=== PATIENT | male | born 1955 | race Caucasian/White ===

== ENCOUNTER 2016-10-22 15:01 | Emergency (ER) | payer SELFPAY ==
[2016-10-22 15:37] VITALS: BP 125/78; PULSE 64; RESP 16; TEMP 98.4; O2SAT 95
--- NOTE | 2016-10-22 16:14 | UCPHY ---
H & P Time Seen by Provider: 10/22/16 16:01 Patient Type: New HPI/ROS: This patient presents with a chief complaint of foreign body to his left eye which began several hours ago. He was looking up well working and something fell into his eye. He does not were contacts. He has irrigated the eye but without benefit. Smoking Status: Never smoked Physical Exam: This is a well-developed well-nourished male appears to be in significant discomfort from his foreign body. Examination of the eye reveals equal pupils which are round reactive. Conjunctiva are slightly injected. No obvious foreign body is noted. The left eye was examined with a slit lamp the cornea is clear without abrasion or foreign body. The upper lid was everted and examined with a slit lamp and no foreign body was seen. The eye was then irrigated with a L of normal saline using a [employer] eye cpo. Constitutional: Initial Vital Signs Temperature (C) 36.9 C 10/22/16 15:35 Heart Rate 64 10/22/16 15:35 Respiratory Rate 16 10/22/16 15:35 Blood Pressure 125/78 H 10/22/16 15:35 O2 Sat (%) 95 10/22/16 15:35 O2 Delivery Mode Room Air Allergies/Adverse Reactions: No Known Allergies Allergy (Unverified 10/22/16 15:34) Home Medications: Medication Instructions Recorded Clonazepam 10/22/16 Clonidine 10/22/16 Lisinopril 10/22/16 Simvastatin 10/22/16 Medical Decision Making ED Course/Re-evaluation: The patient's left eye was irrigated with 500 mL of normal saline using an eye cpo. After this procedure and after the local anesthetic had worn off he denies any foreign body sensation. Differential Diagnosis: I find nothing that would suggest that this patient has a corneal abrasion or a corneal foreign body. Departure - Departure Disposition: Home, Routine, Self-Care Clinical Impression: Foreign body of left eye Qualifiers: Encounter type: initial encounter Qualified Code(s): T15.92XA - Foreign body on external eye, part unspecified, left eye, initial encounter Condition: Good Instructions: Eye Foreign Body (ED) Additional Instructions: If any symptoms persist in 24 hours you should be re-evaluated. Adult Pain & Fever Control: We recommend Acetaminophen (Tylenol) and Ibuprofen (Motrin, Advil) for pain and fever control. When fever is high or pain severe, both drugs can be used at the same time, but at different intervals. Please note the time differences. Your dose is: Acetaminophen [650]mg every 4 to 6 hours ibuprofen [600]mg every [6] hours with food OR naproxen Sodium (Aleve) [440]mg every 12 hours. Note: do not take Acetaminophen with Hydrocodone (Vicodin, Lortab) or Oxycodone (Percocet). These medications also contain Acetaminophen. No more than 3000 mg of Acetaminophen should be taken in 24 hours (for an adult) . The maximal dose of ibuprofen that it is safe in a 24-hour period is 2400 mg. You may take 400 mg every 4 hours, 600 mg every 6 hours or 800 mg every 8 hours safely. - PQRS PQRS Measurement: Not applicable
== END 2016-10-22 17:20 | disposition home or self-care (01) ==
LOC: CED 15:01
PROC: 3E1CX8Z Irrigation of Eye using Irrigating Substance (ICD-10-PCS; principal; 2016-10-22)
DX: T15.92XA Foreign body on external eye, part unspecified, left eye, initial encounter (principal); W20.8XXA Other cause of strike by thrown, projected or falling object, initial encounter
CPT/HCPCS: 99202-PO; G0463-PO